=== PATIENT | female | born 1990 | race Asian ===

== ENCOUNTER 2017-05-25 19:11 | Emergency (ER) | payer SELFPAY ==
[~2017-05-25] VITALS: Ht 170.2 cm; Wt 59.0 kg
[2017-05-25 19:43] VITALS: BP 116/80
== END 2017-05-25 21:57 | disposition home or self-care (01) ==
LOC: ER 19:11
DX: S06.9X1A Unspecified intracranial injury with loss of consciousness of 30 minutes or less, initial encounter (principal); F12.10 Cannabis abuse, uncomplicated; W50.0XXA Accidental hit or strike by another person, initial encounter; Y93.23 Activity, snow (alpine) (downhill) skiing, snowboarding, sledding, tobogganing and snow tubing; Y92.89 Other specified places as the place of occurrence of the external cause; Y99.8 Other external cause status
CPT/HCPCS: 99281; 99282